=== PATIENT | male | born 1950 | race African-American/Black ===

== ENCOUNTER 2019-03-05 08:50 | Day surgery (SDC) | payer OTHER ==
[2019-03-05] MEDS: fentaNYL 0.05 MG/ML VIAL ONE (11:00)
[2019-03-05] MEDS: LIDOCAINE 2% 100 MG/5 ML UJET TP ONE (11:03)
[2019-03-05] MEDS: EPINEPHrine PFS 0.1 MG/ML SYR IVP ONE (12:10)
== END 2019-03-05 17:00 | disposition home or self-care (01) ==
LOC: MDS 08:50 → MMU 08:50 → EDSEX 12:30 → MDS 17:00
PROVIDERS: ATTEND Internal Medicine Gastroenterology
DX: Z12.11 Encounter for screening for malignant neoplasm of colon (principal); D37.5 Neoplasm of uncertain behavior of rectum; D12.0 Benign neoplasm of cecum; D12.7 Benign neoplasm of rectosigmoid junction; I10 Essential (primary) hypertension; Z79.899 Other long term (current) drug therapy; Z90.89 Acquired absence of other organs
CPT/HCPCS: 45381; 45385; 45388; 88305; J0171; J3010

== ENCOUNTER 2019-04-30 08:55 | Day surgery (SDC) | payer OTHER ==
[~2019-04-30] VITALS: Ht 178 cm; Wt 72.6 kg
[2019-04-30] MEDS ORDERED: LIDOCAINE 2% 100 MG/5 ML UJET TP ONE (10:25)
[2019-04-30] MEDS ORDERED: fentaNYL 0.05 MG/ML VIAL ONE (10:25)
[2019-04-30] MEDS ORDERED: fentaNYL 0.05 MG/ML VIAL IVP ONE (11:35)
== END 2019-04-30 12:14 | disposition home or self-care (01) ==
LOC: MOR 08:55 → MMU 09:01 → MOR 12:14
PROVIDERS: ATTEND Internal Medicine Gastroenterology
DX: Z12.11 Encounter for screening for malignant neoplasm of colon (principal); D12.8 Benign neoplasm of rectum; I10 Essential (primary) hypertension; Z79.899 Other long term (current) drug therapy; K64.8 Other hemorrhoids; Z98.890 Other specified postprocedural states
CPT/HCPCS: 45385; J3010